=== PATIENT | female | born 1955 | race Caucasian/White ===

== ENCOUNTER 2024-11-04 14:56 | Emergency (ER) | payer MEDICARE ==
[2024-11-04] MEDS ORDERED: Naloxone 0.4 MG/ML SDV IVPUSH PRN ×4 (15:40→20:09)
[2024-11-04 16:31] LABS: BASOPHILS ABSOLUTE AUTO 0.1 K/mm3 (0.0-0.2); BASOPHILS PERCENT AUTO 0.7 % (0.0-1.0); EOSINOPHILS ABSOLUTE AUTO 0.1 K/mm3 (0.0-0.4); HEMATOCRIT 42.3 % (37.0-47.0); HEMOGLOBIN 13.8 gm/dl (12.0-16.0); IMMATURE GRAN ABSOLUTE AUTO 0.06 K/mm3 (0.00-0.05); IMMATURE GRAN PERCENT AUTO 0.4 % (0.0-0.4); LYMPHOCYTES ABSOLUTE AUTO 2.6 K/mm3 (1.0-4.8); LYMPHOCYTES PERCENT AUTO 18.2 % (24.0-44.0); MEAN CORPUSCULAR HEMOGLOBIN 31.3 pg (28.0-32.0); MEAN CORPUSCULAR HGB CONC 32.6 g/dl (32.0-36.0); MEAN CORPUSCULAR VOLUME 95.9 fl (83.0-99.0); MEAN PLATELET VOLUME 9.6 fl (9.4-12.3); MONOCYTES ABSOLUTE AUTO 0.6 K/mm3 (0.0-0.8); MONOCYTES PERCENT AUTO 4.1 % (0.0-8.0); NEUTROPHILS ABSOLUTE AUTO 10.7 K/mm3 (1.8-7.7); NEUTROPHILS PERCENT AUTO 75.6 % (41.0-71.0); PLATELET COUNT,PLT 140 K/mm3 (150-400); RED BLOOD CELL COUNT 4.41 M/mm3 (4.10-5.30); WHITE BLOOD CELL COUNT,WBC 14.09 K/mm3 (3.9-11.3)
[2024-11-04] MEDS: fentaNYL 100 MCG/2 ML SDV IVPUSH ONE ×4 (16:35→20:38)
[2024-11-04 16:56] LABS: A/G RATIO 0.9 (1-2); ALBUMIN 3.6 g/dl (3.4-5.0); BILIRUBIN TOTAL 0.2 mg/dL (0.2-1.0); BUN/CREATININE RATIO 15.6 (14-18); CALCIUM 8.9 mg/dL (8.5-10.1); CREATININE 0.9 mg/dL (0.55-1.02); EST CRCL DRUG DOSING (CG) 56.78 mL/min; PROTEIN TOTAL,TP 7.5 g/dl (6.4-8.2)
[2024-11-04] MEDS: Sodium Chloride 0.9% 1,000 ML IV ONE (18:52)
== END 2024-11-04 21:20 ==
LOC: JD.ED 14:56
DX: S82.142A Displaced bicondylar fracture of left tibia, initial encounter for closed fracture (principal); S82.452A Displaced comminuted fracture of shaft of left fibula, initial encounter for closed fracture; Z88.5 Allergy status to narcotic agent; W00.0XXA Fall on same level due to ice and snow, initial encounter; Y93.89 Activity, other specified
CPT/HCPCS: 36415; 73590; 80053; 85025; 96361; 96374; 96376; 99285; J3010; J7030